=== PATIENT | male | born 1950 | race Caucasian/White ===

== ENCOUNTER 2018-08-04 17:08 | Emergency (ER) | payer SELFPAY ==
[~2018-08-04] VITALS: Ht 170.2 cm; Wt 74.8 kg
[~2018-08-04 17:08] MED LIST: CLOP75 PO
[2018-08-04] MEDS ORDERED: Percocet 10-321 EACH PO (18:45)
== END 2018-08-04 19:02 | disposition home or self-care (01) ==
LOC: ER 17:08
DX: S52.231A Displaced oblique fracture of shaft of right ulna, initial encounter for closed fracture (principal); S61.411A Laceration without foreign body of right hand, initial encounter; W22.8XXA Striking against or struck by other objects, initial encounter
CPT/HCPCS: 12001; 25605; 73090; 73110; 90471; 90714; 99283-25

== ENCOUNTER 2021-07-30 06:12 | Day surgery (SDC) | payer MEDICARE ==
[~2021-07-30] VITALS: Ht 175.3 cm; Wt 75.6 kg
[~2021-07-30 06:12] MED LIST changes: +MULTI-VITAMIN1 EAC2 PO; +Percocet 10-321 EACH PO
--- NOTE | 2021-07-30 09:19 | NUR ---
07/30/21 0919 [facility] D/[facility] POST OP WITH 150CC URINE
--- NOTE | 2021-07-30 10:31 | NUR ---
Dressing to procedure site clean, dry, intact with no visible drainage, swelling, erythema or bruising noted.
--- NOTE | 2021-07-30 11:27 | NUR ---
PT VERBALIZED UNDERSTANDING OF DISCHARGE INSTRCTIONS
--- NOTE | 2021-07-30 11:38 | NUR ---
Discharge instructions reviewed with patient. Patient verbalizes understanding. Copy given to patient to take home. Discharged via wheelchair to private car for ride home.
== END 2021-07-30 11:43 | disposition home or self-care (01) ==
LOC: ORSCMMR 06:12 → ORD 07:30 → ORSCMMR 07:30
PROVIDERS: Surgery
PROC: 0YUA4JZ Supplement Bilateral Inguinal Region with Synthetic Substitute, Percutaneous Endoscopic Approach (ICD-10-PCS; principal; 2021-07-30 07:30)
PROC: 8E0W4CZ Robotic Assisted Procedure of Trunk Region, Percutaneous Endoscopic Approach (ICD-10-PCS; principal; 2021-07-30 07:30)
DX: K40.90 Unilateral inguinal hernia, without obstruction or gangrene, not specified as recurrent (principal); I25.10 Atherosclerotic heart disease of native coronary artery without angina pectoris; F17.220 Nicotine dependence, chewing tobacco, uncomplicated
CPT/HCPCS: 49650; S2900; A9270; C1781; J0690; J1100; J1170; J2370; J2405; J2704; J3010; J7120

== ENCOUNTER 2022-01-03 11:34 | Inpatient (IN) | payer MEDICARE ==
[~2022-01-03] VITALS: Ht 175.3 cm; Wt 76.1 kg
[2022-01-03 12:59] LABS: BASOPHILS ABSOLUTE AUTO 0.09 K/mm3 (0.00-0.23); BASOPHILS PERCENT AUTO 1 % (0-2); EOSINOPHILS ABSOLUTE AUTO 0.06 K/mm3 (0.00-0.68); EOSINOPHILS PERCENT AUTO 1 % (0-6); Hematocrit 47.3 % (37.0-53.0); Hemoglobin 15.8 g/dL (13.5-17.5); IMMATURE GRAN ABSOLUTE AUTO 0.08 K/mm3 (0.00-0.10); IMMATURE GRAN PERCENT AUTO 1 % (0-1); LYMPHOCYTES ABSOLUTE AUTO 1.52 K/mm3 (0.84-5.20); LYMPHOCYTES PERCENT AUTO 16 % (21-46); MONOCYTES ABSOLUTE AUTO 0.45 K/mm3 (0.16-1.47); MONOCYTES PERCENT AUTO 5 % (4-13); Mean Corpuscular HGB 29.9 pg (26.0-34.0); Mean Corpuscular HGB Conc 33.4 g/dL (31.5-36.5); Mean Corpuscular Volume 89 fL (80-100); Mean Platelet Volume 11.4 fL (9.1-12.4); NEUTROPHILS PERCENT AUTO 76 % (41-73); Platelet Count 217 K/mm3 (150-400); RDW Coefficient Variation 12.7 % (11.7-14.2); Red Blood Cell Count 5.29 M/mm3 (4.30-5.90)
[2022-01-03 13:05] LABS: Albumin, Blood 3.9 g/dL (3.4-5.0); Albumin/Globulin Ratio 1.3 (0.8-1.8); Bilirubin, Total 0.4 mg/dL (0.1-1.0); Bun/Creatinine Ratio 22.5 (12.0-20.0); Calcium, Blood 9.3 mg/dL (8.5-10.1); Creatinine, Blood 0.98 mg/dL (0.60-1.20); Potassium, Blood 4.2 mmol/L (3.5-5.5); Total Protein, Blood 6.9 g/dL (6.4-8.2)
--- NOTE | 2022-01-03 17:36 | NUR ---
SHIFT SUMMARY PATIENT ARRIVED TO UNIT ABOUT 1415, VSS ON 4L 02. PATIENT VERY PAINFUL WHEN MOVING, BUT STATES HE HAS NO PAIN IF HE JUST LAYS STILL. REPORTS MUSCLES TO BE SORE, FLEXERIL GIVEN PER EMAR. TOLERATING PO FLUIDS AND FOOD AT THIS TIME, DENIES N/V. ENCOURAGING USE OF INCENTIVE SPIROMETER AND DEEP BREATHING, DEMONSTRATED WELL. CALLS APPROPRIATLY, WILL REPORT TO ONCOMING RN
--- NOTE | 2022-01-04 06:22 | NUR ---
SUMMARY PT SLEPT ALL NIGHT. PT TX PER EMAR WITH RELIEF AND ABLE TO SLEEP. PT HAS NOT VOIDED AND STATES HE WAS AFRAID TO MOVE DURING THE NIGHT. PT IS ATTEMPTING TO VOID VIA URINAL. NO OTHER ISSUES NOTED. WCTM.
--- NOTE | 2022-01-04 07:25 | NUR ---
ASSUMED CARE OF PATIENT. PATIENT SITTING UP IN BED, REPOSITIONED WITH ASSISTANCE OF 2 STAFF, REPORTS BEING COMFORTABLE AT THIS TIME. O2 SATS AT 97% VIA 4L NC. PATIENT IS GOING TO TRY TO USE THE URINAL AT THIS TIME. CALL LIGHT IN REACH.
--- NOTE | 2022-01-04 07:59 | NUR ---
ATTEMPTED TO PULL [place] FOR PATIENT, APPEARS [facility] PATIENT REMEBERS NOC RN GIVING SOMETHING THROUGH IV, BUT NO DOCUMENTATION WAS MADE ON EMAR.
--- NOTE | 2022-01-04 17:08 | NUR ---
PATIENT REMOVED DIRECTOR OF EXHIBIT DEVELOPMENT BRACE WHILE IN THE BATHROOM AND REFUSES TO WEAR IT AT THIS TIME. PATIENT STATES IT IS "MORE PAINFUL WITH IT ON" & HE "CANT MOVE" WHILE WEARING IT.
--- NOTE | 2022-01-04 18:38 | NUR ---
SHIFT SUMMARY NO ACUTE CHANGES THIS SHIFT. VSS, ON 4L O2 VIA NC FOR LUNG COMFORT D/T SMALL PNEUMO. PATIENT HAD CANINE SERVICE INSTRUCTOR TRAINER BRACE FITTED AND PALCED THIS AM, ALTHOUGH PATIENT TOOK OFF THIS AFTERNOON HE COULD NO LONGER TOLERATE IT, MD AWARE. UP TO BATHROOMO AND CHAIR MULTIPLE TIMES T/O DAY. EATING, DRINKING, & VOIDING WELL. PAIN MANAGED PER EMAR. CALLS APPROPRIATLY, WILL REPORT TO ONCOMING RN.
--- NOTE | 2022-01-04 20:43 | NUR ---
BRACE/ BEDREST DR. WILDE ROUNDED ON PT THIS EVENING, HE ORDERED FOR PT TO BE BEDREST FROM THIS POINT FOWARD HE IS UNSURE OF HOW STABLE SPINAL FRACTURE IS. HE ALSO ORDERED FOR PT WEAR BRACE AT ALL TIMES. HE IS AWARE THAT PT DOES NOT WANT TO WEAR BRACE. HE STATES HE PREFERS IF PT WEARS BUT SAYS ITS OK TO LEAVE BRACE OFF, BUT THAT HE MUST REMAIN BEDREST. PT INSTRUCTED NOT TO GET OOB, BED ALARM IN PLACE.
--- NOTE | 2022-01-05 04:30 | NUR ---
SHIFT SUMMARY BEDREST HAS BEEN ORDERED FOR PT. HE IS NOT HAPPY WITH CURRENT ORDERS AND IS HAVING A DIFFICULT TIME GRASPING WHY HE SHOULD NOT AMBULATE. PT HAS BEEN EDUCATED MULTIPLE TIMES THIS SHIFT. HE IS FRUSTRATED BUT HE HAS BEEN COMPLIANT WITH STAYING IN BED. PT CONTINUES TO REFUSE SUPERVISOR RESPIRATORY BRACE. INTERMITTENT RIB PAIN WITH COUGHING. MEDICATED PER EMAR. PT WITH CONGESTED COUGH. SPLINTING AND INCENTIVE SPIROMETER ENCOURAGED. O2 2L PLACED BY RT TO IMPROVE OXYGENATION AND KEEP SATS WNL PT IS NOT BREATHING DEEPLY ENOUGH DUE TO PAIN. MALDONADO BIOX IN PLACE. VITALS STABLE. BED IN LOWEST POSITION, CALL LIGHT WITHIN REACH.
--- NOTE | 2022-01-05 14:13 | NUR ---
PATIENT AND DAUGHTER ARE IN THE ROOM AND ASKED FOR SOME ASSISTANCE. PATIENT WAS IN THE BATHROOM WITH NO BACK BRACE/ C-COLLAR ON. THIS NURSE EDUCATED THE PATIENT THAT HE IS TO WEAR THE BACK BRACE/ C-COLLAR ON WHILE AMBULATING EVEN IF ITS TO THE BATHROOM SINCE IT COULD MAKE HIS STABLE FRACTURE UNSTABLE. PATIENT AND DAUGHTER VERBALIZED UNDERSTANDING OF THE IMPORTANCE OF WEARING THE BRACE/C-COLLAR. THIS NURSE SHOWED THE DAUGHTER HOW TO PUT ON THE BACK BRACE/C-COLLAR WHILE PATIENT WAS STILL IN THE BATHROOM. PATIENT IS NOW BACK IN BED WITHOUT THE BACK BRACE ON WHICH HAS BEEN OKAY'ED BY THE DOCTORS. CALL LIGHT WITHIN REACH. PHYSICAL THERAPY HAS BEEN CALLED TO COME WORK WITH HIM WHEN AVAILABLE.
--- NOTE | 2022-01-05 14:55 | NUR ---
SHIFT SUMMARY: SPINAL FX WITH LEFT SIDE BROKEN RIBS PATIENT IS A&OX4. VS ARE WNL AND ON RA THOUGH IS ON 2L NC WHILE ASLEEP WELL BIOX SINCE PATIENT DESATS WHILE SLEEPING. PAIN IS MANAGED WITH IV FENT AND FLEXIRIL. PATIENT HAS BRUISING ON THE LEFT SIDE. PATIENT HAS MOST PAIN WITH AMBULATION. PATIENT AND FAMILY WERE EDUCATED ON THE BRACE WEARING AND IS TO KEEP THE BRACE ON WITH AMBULATION BUT DOES NOT NEED TO WEAR IT WHILE IN BED. BOTH OF THEM VERBALIZED UNDERSTANDING. PATIENT DENIES NUMBNESS AND TINGLING. ENCOURAGING INCENTIVE SPIROMETER USE. PATIENT IS TOLERATING PO INTAKE AND IS VOIDING/PASSING GAS. CALLS APPROPRIATELY. CALL LIGHT WITHIN REACH. THE PLAN IS FOR THE PATIENT TO WORK WITH PHYSICAL THERAPY AND TO CONTINUE PAIN MANAGEMENT. PATIENT IS TO ALSO CONTINUE EDUCATION ON BRACE WEARING. DR. GAN STATED PATIENT WOULD POSSIBLY BE ABLE TO DISCHARGE HOME TOMORROW IF APPROPRIATE.
--- NOTE | 2022-01-06 06:04 | NUR ---
SHIFT SUMMARY PT HAS RESTED MOST OF THE SHIFT. PT MEDICATED FOR PAIN PER EMAR WITH EFFECT. PT IS BREATHING EASIER, AND HAS BEEN ABLE TO COUGH. PT HAS NOT AMBULATED OUT OF BED THIS SHIFT, BUT WAS ONCE AGAIN INSTRUCTED TO USE WOODWORKING MACHINE OPERATOR COLLAR WHEN AMBULATING. VITALS STABLE. PT ABLE TO WIGGLE FINGERS AND TOES, SHEILA NUMBESS. PLAN IS FOR DC TODAY, BED IN LOWEST POSITION, CALL LIGHT WITHIN REACH.
[2022-01-06] MEDS ORDERED: CYCLOBENZAPRINE5 MG PO (11:03)
[2022-01-06] MEDS ORDERED: HYDROCODONE-AC1 EA10 PO (11:04)
[2022-01-06] MEDS ORDERED: NAPR500 PO (11:06)
--- NOTE | 2022-01-06 11:26 | NUR ---
AMBULATED IN ROOM THIS AM WITH WALKER AND GAIT BELT, TOLERATED WELL, CTLSO BRACE IN PLACE, PT ANXIOUS TO GO HOME, DECLINED HOME HEALTH PT DR. GAN AWARE, PT WILL F/U WITH DR. RYAN IN 2 WEEKS, DC INSTRUCTIONS GIVEN TO PT AND , VERBALIZED UNDERSTANDING, IV DC'D, CATH INTACT.
== END 2022-01-06 11:48 | disposition home or self-care (01) | DRG 200 ==
LOC: ER 11:34 → SURS 13:11
PROVIDERS: Student in an Organized Health Care Education/Training Program; ADMIT Surgery
DX: S27.0XXA Traumatic pneumothorax, initial encounter (principal); M48.54XA Collapsed vertebra, not elsewhere classified, thoracic region, initial encounter for fracture; S22.42XA Multiple fractures of ribs, left side, initial encounter for closed fracture; S22.21XA Fracture of manubrium, initial encounter for closed fracture; S32.028A Other fracture of second lumbar vertebra, initial encounter for closed fracture; S42.192A Fracture of other part of scapula, left shoulder, initial encounter for closed fracture; E78.00 Pure hypercholesterolemia, unspecified; F17.220 Nicotine dependence, chewing tobacco, uncomplicated; Z20.822 Contact with and (suspected) exposure to COVID-19; I25.2 Old myocardial infarction; Z95.5 Presence of coronary angioplasty implant and graft; Z98.890 Other specified postprocedural states; Z79.899 Other long term (current) drug therapy; W13.2XXA Fall from, out of or through roof, initial encounter
CPT/HCPCS: 70450; 71260; 72070; 72125; 72128; 72131; 74177; 80053; 85025; 94760; 94762; 96374-59; 96375-59; 97110; 97116; 97162; 97166; 97530; 97535; 99285-25; A9270; J1170; J1885; J3010; Q9967

== ENCOUNTER → 2022-11-30 | Outpatient (CLI) | payer MEDICARE ==
[~2022-11-30] MED LIST changes: +CYCLOBENZAPRINE5 MG PO; +HYDROCODONE-AC1 EA10 PO; +NAPR500 PO
[2022-11-30 19:23] LABS: Protein, Urine Random 18.4 mg/dL (0.0-11.9); Protein/Creat Ratio, Ur Random 0.2
== END | disposition home or self-care (01) ==
LOC: LAB 17:47 → LAB SHORT 17:47
PROVIDERS: Family Medicine
DX: R60.0 Localized edema (principal)
CPT/HCPCS: 82570; 84156

== ENCOUNTER → 2023-05-02 | Outpatient (CLI) | payer MEDICARE | END | disposition home or self-care (01) | LOC: LAB 15:50 → LAB SHORT 15:50 | PROVIDERS: Family Medicine | DX: Z12.5 Encounter for screening for malignant neoplasm of prostate (principal) | CPT/HCPCS: G0103 ==

== ENCOUNTER 2025-06-24 13:31 | Emergency (ER) | payer MEDICARE ==
[~2025-06-24] VITALS: Ht 170.2 cm; Wt 70.3 kg
[2025-06-24 14:00] VITALS: BP 136/81
[2025-06-24] MEDS ORDERED: Ketorolac Tromethamine 15mg Vial IM ONE (15:15)
== END 2025-06-24 17:49 | disposition home or self-care (01) ==
LOC: ER 13:31
DX: S32.502A Unspecified fracture of left pubis, initial encounter for closed fracture (principal); S20.212A Contusion of left front wall of thorax, initial encounter; E78.00 Pure hypercholesterolemia, unspecified; W18.30XA Fall on same level, unspecified, initial encounter; Z79.899 Other long term (current) drug therapy; Z88.5 Allergy status to narcotic agent
CPT/HCPCS: 71045; 73502; 73552; 73700; 93005; 93010; 96372; 99284-25; A9270; J1885